=== PATIENT | female | born 1975 | race Caucasian/White ===

== ENCOUNTER → 2017-04-17 | Outpatient (CLI) | payer BC ==
--- NOTE | ~2017-04-17 | BD1 ---
[facility] A Service of [facility] RADIOLOGY TEXT RESULTS PATIENT: VIKI HUNTER LOCATION: [facility] : 73 UNIT #: [id number] AGE: [address]: Rikki Silva MD SEX: F ORDER DR: [id number] [facility] [address] [place], [place] [address] [id number] O MR#: [id number] Acc #: [id number] NAME: VIKI HUNTER : 1975 SEX: F STUDY DATE/TIME: 04/17/2017 9:25 UNIT: [facility] ROOM: STUDY DESCRIPTION: BD Dexa Bone Dens 1+ Site Attending Physician: Rikki Silva M.D. Ordering Physician: Rikki Silva M.D. Primary Care Physician: Sebastian Reid M.D. MEDICAL IMAGING REPORT This report is preliminary unless electronic signature is present EXAM DXA scan 04/17/2017 HISTORY Status post menopause with no hormone replacement therapy. Osteopenia. Colorectal carcinoma. FINDINGS Bone mineral density in the lumbar spine from L1-L4 is 0.772 g/cm2 which is 2.5 standard deviations below the mean when compared to the young adult reference population which is characteristic of osteoporosis. This is 2.1 standard deviations below the mean when compared to the age-matched population. Compared with 06/05/2014, there has been an increase in bone mineral density in the lumbar spine of 1.5%. Bone mineral density in the left femoral neck was 0.596 g/cm2 which is 2.3 standard deviations below the mean when compared to the young adult reference population which is characteristic of osteopenia. This is 1.9 standard deviations below the mean when compared to the age-matched population. Compared with 06/05/2014, there has been an increase in bone mineral density in the left hip of 5.7%. IMPRESSION Bone mineral density in the lumbar spine characteristic of osteoporosis and within the left hip characteristic of osteopenia. Compared with 06/05/2014, there has been an increase in bone mineral density in the lumbar spine and the left hip. Dictated by... Keith Guzman M.D. THIS IS AN ELECTRONICALLY VERIFIED REPORT [facility] A Service of [facility] RADIOLOGY TEXT RESULTS PATIENT: VIKI HUNTER LOCATION: [facility] : 73 UNIT #: [id number] AGE: [address]: Rikki Silva MD SEX: F ORDER DR: Keith Guzman M.D. at 04/17/2017 4:30 PM KRT/lexie TD: 04/17/2017 11:22 JOB #: [id number] MEDICAL IMAGING REPORT Page 1 of 1 COPY
== END | disposition home or self-care (01) ==
LOC: CWCC 09:01
DX: C20 Malignant neoplasm of rectum (principal)
CPT/HCPCS: 77080

== ENCOUNTER → 2017-06-24 | Outpatient (CLI) | payer BC ==
--- NOTE | ~2017-06-24 | MY29 ---
[facility] A Service of [facility] RADIOLOGY TEXT RESULTS PATIENT: VIKI HUNTER LOCATION: [facility] : 73 UNIT #: [id number] AGE: [address]: Rikki Silva MD SEX: F ORDER DR: [id number] [facility] [address] [place], [place] [address] [id number] O MR#: [id number] Acc #: [id number] NAME: VIKI HUNTER : 1975 SEX: F STUDY DATE/TIME: 06/24/2017 9:49 UNIT: [facility] ROOM: STUDY DESCRIPTION: MY ROSEMARY SCREENING W/ CAD BILAT Attending Physician: Rikki Silva M.D. Referring Physician: Rikki Silva M.D. Ordering Physician: Rikki Silva M.D. Primary Care Physician: Sebastian Reid M.D. MEDICAL IMAGING REPORT This report is preliminary unless electronic signature is present EXAM Digital screening mammogram 06/24/2017 HISTORY 42-year-old woman positive family history, cousin. Personal history of colorectal cancer. Annual screen. COMPARISON Mammograms 06/02/2016 with followup diagnostic left breast evaluation 06/13/2016, targeted ultrasound included. FINDINGS Digital imaging of each breast was completed utilizing screening protocol. Review includes FDA-approved CAD device. Breast parenchyma is partially fatty replaced. Residual fibroglandular opacities are stable in each breast. An approximate 11 mm circumscribed nodule is again noted deep central left breast location. Previous diagnostic evaluation with a targeted ultrasound confirms a simple cyst characteristics. I see no interval occurring mass. There are no suspicious microcalcifications and no architectural deformity. IMPRESSION Benign mammogram. Annual screening recommended. Patients over the age of 40 are entered into a reminder system with target due date for the next mammogram. A result letter will also be sent to the patient. BIRADS: 2, benign findings. Dictated by... Oz Martino M.D. [facility] A Service of [facility] RADIOLOGY TEXT RESULTS PATIENT: VIKI HUNTER LOCATION: [facility] : 73 UNIT #: [id number] AGE: [address]: Rikki Silva MD SEX: F ORDER DR: THIS IS AN ELECTRONICALLY VERIFIED REPORT Oz Martino M.D. at 06/24/2017 1:57 PM ALTA/mica TD: 06/24/2017 12:26 JOB #: [id number] MEDICAL IMAGING REPORT Page 1 of 1 COPY
--- NOTE | ~2017-06-24 | US128 ---
[id number] [facility] [address] [place], [place] [address] [id number] O MR#: [id number] Acc #: [id number] NAME: VIKI HUNTER : 1975 SEX: F STUDY DATE/TIME: 06/24/2017 9:17 UNIT: [facility] ROOM: STUDY DESCRIPTION: Thyroid Attending Physician: Rikki Silva M.D. Referring Physician: Rikki Silva M.D. Ordering Physician: Rikki Silva M.D. Primary Care Physician: Sebastian Reid M.D. MEDICAL IMAGING REPORT This report is preliminary unless electronic signature is present EXAM Thyroid ultrasound 06/24/2017 HISTORY Malaise and fatigue. FINDINGS The right thyroid lobe measured 4.2 cm x 1.5 cm x 1.4 cm, while the left thyroid lobe measured 7 mm x 1.6 cm x 4.1 cm. The isthmus measured 2 mm in the AP direction. There is a 3 mm nodule in the mid-right thyroid lobe and there is a 4 mm nodule in the lower pole of the left lobe. There are no masses extrinsic to the thyroid. Normal blood flow is seen throughout both thyroid lobes. IMPRESSION 3 mm nodule mid-right thyroid lobe and 4 mm nodule lower pole left thyroid lobe. Dictated by... Keith Guzman M.D. THIS IS AN ELECTRONICALLY VERIFIED REPORT Keith Guzman M.D. at 06/25/2017 7:33 AM CHETAN/kevin TD: 06/24/2017 17:03 JOB #: [id number] MEDICAL IMAGING REPORT Page 1 of 1 COPY
== END | disposition home or self-care (01) ==
LOC: CWCC 09:02
DX: Z12.31 Encounter for screening mammogram for malignant neoplasm of breast (principal); C20 Malignant neoplasm of rectum; R53.81 Other malaise; R53.83 Other fatigue; E04.2 Nontoxic multinodular goiter; Z80.3 Family history of malignant neoplasm of breast
CPT/HCPCS: 76536; G0202